=== PATIENT | male | born 1950 | race Caucasian/White ===

== ENCOUNTER 2016-05-28 02:34 | Inpatient (IN) | payer MEDICARE, MEDICAID ==
[~2016-05-28] VITALS: Ht 170.2 cm; Wt 58.8 kg
[2016-05-28] VITALS (7 sets, daily range): BP systolic 89–129; BP diastolic 54–79
[2016-05-28] MEDS ORDERED: methylPREDNISolone SOD SUCC 125 MG/2 ML VL ONE (02:37)
[2016-05-28] MEDS ORDERED: methylPREDNISolone SOD SUCC 125 MG/2 ML VL IV ONE (02:45)
[2016-05-28 02:56] LABS: Basophils # (auto) 0.1 uL; Basophils % (auto) 1.1 % (0.0-2.0); Eosinophils # (auto) 0.4 uL; Hematocrit 54.2 % (41.0-53.0); Hemoglobin 17.3 g/dL (13.5-17.5); Lymphocytes # (auto) 2.3 uL; Lymphocytes % (auto) 31.1 % (10.0-50.0); Mean Corpuscular Hemoglobin 30.4 pg (28.0-32.0); Mean Corpuscular Hgb Conc. 31.9 g/dL (32.0-36.0); Mean Corpuscular Volume 95.3 fL (80.0-100.0); Monocytes # (auto) 0.7 uL; Monocytes % (auto) 9.6 % (0.0-12.0); Neutrophils % (auto) 53.2 % (37.0-80.0); Platelet Count (auto) 313 10^3/uL (140-450); Red Cell Distribution Width 14.5 % (11.6-16.0); White Blood Cell 7.5 10^3/uL (4.4-10.8)
[2016-05-28] MEDS ORDERED: ALBUTEROL SULF 2.5 MG/0.5ML(0.5%) NEB SOLN NEB ONE (03:00)
[2016-05-28] MEDS ORDERED: IPRATROPIUM BROM 0.5 MG/2.5ML INH SOL NEB ONE (03:00)
[2016-05-28 03:37] LABS: Albumin 3.8 g/dL (3.4-5.0); BUN/Creatinine Ratio 19.3; Calcium 9.4 mg/dL (8.5-10.1); Potassium 4.4 mmol/L (3.5-5.1)
[2016-05-28 03:40] LABS: Bilirubin, Total 0.5 mg/dL (0.2-1.0); Total Protein 7.4 g/dL (6.4-8.2)
[2016-05-28 03:58] LABS: B-Type Natriuretic Peptide 11.86 pg/mL (0-100)
[2016-05-28 04:18] LABS: Temperature: 21.9 C (20.0-25.0)
[2016-05-28] MEDS ORDERED: ONDANSETRON HCL 4 MG/2 ML VIAL IV PRN (05:45)
[2016-05-28] MEDS ORDERED: LACTULOSE 20Gm/30ML SOLN PO PRN (05:45)
[2016-05-28] MEDS ORDERED: MORPHINE SULF INJ 2 MG/ML SYRINGE 1ML IV PRN (05:45)
[2016-05-28] MEDS ORDERED: NITROGLYCERIN 0.4 MG SL TAB SL PRN (05:45)
[2016-05-28] MEDS: SODIUM CHLORIDE 0.9% 1,000 ML IV SCH ×2 (06:02→07:42)
[2016-05-28] MEDS: ALPRAZolam 0.5 MG TAB PO SCH ×3 (06:02→22:31)
[2016-05-28] MEDS: ALBUTEROL SULF 2.5 MG/0.5ML(0.5%) NEB SOLN NEB SCH ×5 (06:41→22:24)
[2016-05-28] MEDS: IPRATROPIUM BROM 0.5 MG/2.5ML INH SOL NEB SCH ×5 (06:41→22:24)
[2016-05-28] MEDS ORDERED: cefTRIAXone 1GM/50ML D5W 50 ML IV SCH (09:00)
[2016-05-28] MEDS ORDERED: methylPREDNISolone SOD SUCC 125 MG/2 ML VL IV SCH (10:00)
[2016-05-28] MEDS ORDERED: ENOXAPARIN SOD 30 MG/0.3 ML SYRINGE SC SCH (10:00)
[2016-05-28] MEDS: ENOXAPARIN SOD 40 MG/0.4 ML SYRINGE SC SCH (10:47)
[2016-05-28] MEDS: PANTOPRAZOLE SODIUM 40 MG/10 ML VIAL IV SCH (10:47)
[2016-05-28] MEDS ORDERED: LEVOFLOXACIN 500MG 100 ML IV ONE (13:00)
[2016-05-28] MEDS ORDERED: INFLUENZA QUAD 2016-2017 0.5 ML SYRG IM ONE (13:45)
[2016-05-28] MEDS ORDERED: PNEUMOCOCCAL VACC POLYS 25 MCG/0.5 ML VIAL IM ONE (13:45)
[2016-05-28] MEDS ORDERED: methylPREDNISolone SOD SUCC 40 MG/ML VL IV SCH (18:00)
[2016-05-28] MEDS: methylPREDNISolone SOD SUCC 125 MG/2 ML VL IV SCH (22:30)
[2016-05-28] MEDS: DOXAZOSIN MESYL 2 MG TAB PO SCH (22:30)
[2016-05-29] MEDS: ALBUTEROL SULF 2.5 MG/0.5ML(0.5%) NEB SOLN NEB SCH ×6 (02:30→22:04)
[2016-05-29] MEDS: IPRATROPIUM BROM 0.5 MG/2.5ML INH SOL NEB SCH ×6 (02:30→22:05)
[2016-05-29 05:00] VITALS: BP 94/47
[2016-05-29 05:10] LABS: Basophils # (auto) 0 uL; Basophils % (auto) 0.1 % (0.0-2.0); Eosinophils # (auto) 0 uL; Eosinophils % (auto) 0.1 % (0.0-7.0); Hematocrit 41.7 % (41.0-53.0); Hemoglobin 13.9 g/dL (13.5-17.5); Lymphocytes # (auto) 0.5 uL; Lymphocytes % (auto) 8.1 % (10.0-50.0); Mean Corpuscular Hemoglobin 31.9 pg (28.0-32.0); Mean Corpuscular Hgb Conc. 33.3 g/dL (32.0-36.0); Mean Corpuscular Volume 95.8 fL (80.0-100.0); Mean Platelet Volume 7.7 fL (7.4-10.4); Monocytes # (auto) 0.3 uL; Monocytes % (auto) 4.5 % (0.0-12.0); Neutrophils # (auto) 5.7 uL; Neutrophils % (auto) 87.2 % (37.0-80.0); Platelet Count (auto) 247 10^3/uL (140-450); Red Cell Distribution Width 13.3 % (11.6-16.0); White Blood Cell 6.5 10^3/uL (4.4-10.8)
[2016-05-29 05:28] LABS: Albumin 2.9 g/dL (3.4-5.0); Calcium 8.6 mg/dL (8.5-10.1); Potassium 4.7 mmol/L (3.5-5.1)
[2016-05-29 05:30] LABS: BUN/Creatinine Ratio 27.8
[2016-05-29 05:34] LABS: Bilirubin, Total 0.2 mg/dL (0.2-1.0); Total Protein 5.5 g/dL (6.4-8.2)
[2016-05-29] MEDS: ALPRAZolam 0.5 MG TAB PO SCH ×3 (05:46→21:56)
[2016-05-29] MEDS: SODIUM CHLORIDE 0.9% 1,000 ML IV SCH ×2 (05:47→21:49)
[2016-05-29 09:06] VITALS: BP 93/57
[2016-05-29] MEDS: ENOXAPARIN SOD 40 MG/0.4 ML SYRINGE SC SCH (10:29)
[2016-05-29] MEDS: methylPREDNISolone SOD SUCC 125 MG/2 ML VL IV SCH ×2 (10:29→21:54)
[2016-05-29] MEDS: LEVOFLOXACIN 500MG 100 ML IV SCH (10:30)
[2016-05-29] MEDS: PANTOPRAZOLE SODIUM 40 MG/10 ML VIAL IV SCH (10:30)
[2016-05-29 13:53] VITALS: BP 99/51
[2016-05-29] MEDS ORDERED: FLUT250M2 IN (15:28)
[2016-05-29] MEDS ORDERED: FENO1TAB PO (15:28)
[2016-05-29] MEDS ORDERED: DOXA1TAB42 PO (15:28)
[2016-05-29] MEDS ORDERED: BECL80AE9 IN (15:28)
[2016-05-29] MEDS ORDERED: TRAM50TA2 PO (15:28)
[2016-05-29] MEDS ORDERED: ALPR-229 PO (15:28)
[2016-05-29] MEDS ORDERED: FINA5TAB4 PO (15:28)
[2016-05-29 17:11] VITALS: BP 99/42
[2016-05-29] MEDS: DOXAZOSIN MESYL 2 MG TAB PO SCH (21:55)
[2016-05-29 22:00] VITALS: BP 135/56
[2016-05-30] MEDS: ALBUTEROL SULF 2.5 MG/0.5ML(0.5%) NEB SOLN NEB SCH ×5 (02:19→22:05)
[2016-05-30] MEDS: IPRATROPIUM BROM 0.5 MG/2.5ML INH SOL NEB SCH ×6 (02:19→22:05)
[2016-05-30 05:00] VITALS: BP 85/59
[2016-05-30] MEDS: ALPRAZolam 0.5 MG TAB PO SCH ×3 (06:05→22:20)
[2016-05-30] MEDS: SODIUM CHLORIDE 0.9% 1,000 ML IV SCH ×2 (07:35→21:38)
[2016-05-30] MEDS: methylPREDNISolone SOD SUCC 125 MG/2 ML VL IV SCH ×2 (09:03→22:20)
[2016-05-30] MEDS: PANTOPRAZOLE SODIUM 40 MG/10 ML VIAL IV SCH (09:03)
[2016-05-30] MEDS: ENOXAPARIN SOD 40 MG/0.4 ML SYRINGE SC SCH (09:04)
[2016-05-30] MEDS: LEVOFLOXACIN 500MG 100 ML IV SCH (09:04)
[2016-05-30 09:12] VITALS: BP 91/47
[2016-05-30] MEDS ORDERED: guaiFENesin-COD 10 ML UD GT PRN (11:45)
[2016-05-30 13:00] VITALS: BP 100/50
[2016-05-30] MEDS: traMADol HCL 50 MG TAB PO PRN (15:31)
[2016-05-30] MEDS: guaiFENesin-COD 10 ML UD GT PRN ×2 (15:31→22:21)
[2016-05-30 16:43] VITALS: BP 95/56
[2016-05-30 22:00] VITALS: BP 100/57
[2016-05-30] MEDS: DOXAZOSIN MESYL 2 MG TAB PO SCH (22:20)
[2016-05-31] MEDS: ALBUTEROL SULF 2.5 MG/0.5ML(0.5%) NEB SOLN NEB SCH ×6 (02:15→22:19)
[2016-05-31] MEDS: IPRATROPIUM BROM 0.5 MG/2.5ML INH SOL NEB SCH ×6 (02:15→22:19)
[2016-05-31 05:00] VITALS: BP 82/51
[2016-05-31 06:05] LABS: Basophils # (auto) 0 uL; Basophils % (auto) 0.2 % (0.0-2.0); Eosinophils # (auto) 0 uL; Hematocrit 38.4 % (41.0-53.0); Hemoglobin 12.5 g/dL (13.5-17.5); Lymphocytes # (auto) 0.3 uL; Lymphocytes % (auto) 6.1 % (10.0-50.0); Mean Corpuscular Hgb Conc. 32.6 g/dL (32.0-36.0); Mean Platelet Volume 8.2 fL (7.4-10.4); Monocytes # (auto) 0.2 uL; Monocytes % (auto) 4.5 % (0.0-12.0); Neutrophils # (auto) 4.6 uL; Neutrophils % (auto) 89.2 % (37.0-80.0); Platelet Count (auto) 235 10^3/uL (140-450); Red Cell Distribution Width 14.2 % (11.6-16.0); White Blood Cell 5.1 10^3/uL (4.4-10.8)
[2016-05-31 06:11] LABS: BUN/Creatinine Ratio 27.8; Calcium 8.5 mg/dL (8.5-10.1); Magnesium 2.4 mg/dL (1.6-2.6); Potassium 4.6 mmol/L (3.5-5.1)
[2016-05-31 06:14] LABS: INR 1.11 (0.9-1.15); Prothrombin Time 11.4 sec (9.37-12.3)
[2016-05-31] MEDS: ALPRAZolam 0.5 MG TAB PO SCH ×3 (06:19→23:17)
[2016-05-31] MEDS: SODIUM CHLORIDE 0.9% 1,000 ML IV SCH ×2 (08:32→21:02)
[2016-05-31 08:51] VITALS: BP 97/51
[2016-05-31] MEDS: PANTOPRAZOLE SODIUM 40 MG/10 ML VIAL IV SCH (09:47)
[2016-05-31] MEDS: LEVOFLOXACIN 500MG 100 ML IV SCH (09:47)
[2016-05-31] MEDS: guaiFENesin-COD 10 ML UD GT PRN ×2 (09:48→23:29)
[2016-05-31] MEDS: methylPREDNISolone SOD SUCC 125 MG/2 ML VL IV SCH (09:48)
[2016-05-31] MEDS: ENOXAPARIN SOD 40 MG/0.4 ML SYRINGE SC SCH (10:22)
[2016-05-31 13:00] VITALS: BP 91/45
[2016-05-31] MEDS: traMADol HCL 50 MG TAB PO PRN (14:31)
[2016-05-31] MEDS ORDERED: LEVO500T3 PO (15:48)
[2016-05-31] MEDS ORDERED: PANT40TA2 PO (15:48)
[2016-05-31 17:02] VITALS: BP 100/67
[2016-05-31 21:33] VITALS: BP 105/57
[2016-05-31 21:50] VITALS: BP 105/57
[2016-05-31] MEDS ORDERED: DOXAZOSIN MESYL 2 MG TAB PO SCH (22:00)
[2016-05-31] MEDS: methylPREDNISolone SOD SUCC 40 MG/ML VL IV SCH (23:18)
[2016-06-01] MEDS: IPRATROPIUM BROM 0.5 MG/2.5ML INH SOL NEB SCH ×4 (01:54→14:53)
[2016-06-01] MEDS: ALBUTEROL SULF 2.5 MG/0.5ML(0.5%) NEB SOLN NEB SCH ×4 (01:54→14:54)
[2016-06-01 05:41] VITALS: BP 92/49
[2016-06-01] MEDS: ALPRAZolam 0.5 MG TAB PO SCH ×2 (07:03→14:45)
[2016-06-01] MEDS: SODIUM CHLORIDE 0.9% 1,000 ML IV SCH (07:03)
[2016-06-01] MEDS: guaiFENesin-COD 10 ML UD GT PRN ×2 (07:09→14:45)
[2016-06-01 08:30] VITALS: BP 97/50
[2016-06-01] MEDS ORDERED: LEVOFLOXACIN 500 MG TAB PO SCH (10:00)
[2016-06-01] MEDS: PANTOPRAZOLE SODIUM 40 MG/10 ML VIAL IV SCH (10:31)
[2016-06-01] MEDS: ENOXAPARIN SOD 40 MG/0.4 ML SYRINGE SC SCH (10:31)
[2016-06-01] MEDS: methylPREDNISolone SOD SUCC 40 MG/ML VL IV SCH (10:31)
[2016-06-01] MEDS ORDERED: Nutren Pulmonary 250ml Bottle PO SCH (12:00)
[2016-06-01 13:09] VITALS: BP 91/51
[2016-06-01 14:39] VITALS: BP 105/57
[2016-06-01 16:25] VITALS: BP 108/62
== END 2016-06-01 16:35 | disposition home or self-care (01) | DRG 189 ==
LOC: ER 02:35 → TELE-WESTW 02:36 → WEST WING 06-01 11:32
PROVIDERS: ADMIT Family Medicine; ATTEND Internal Medicine
PROC: 5A09357 Assistance with Respiratory Ventilation, Less than 24 Consecutive Hours, Continuous Positive Airway Pressure (ICD-10-PCS; principal; 2016-05-28)
DX: J96.21 Acute and chronic respiratory failure with hypoxia (principal); J44.0 Chronic obstructive pulmonary disease with (acute) lower respiratory infection; J44.1 Chronic obstructive pulmonary disease with (acute) exacerbation; J20.9 Acute bronchitis, unspecified; F17.210 Nicotine dependence, cigarettes, uncomplicated; J45.909 Unspecified asthma, uncomplicated; M19.90 Unspecified osteoarthritis, unspecified site; G89.29 Other chronic pain; N40.0 Benign prostatic hyperplasia without lower urinary tract symptoms; M54.5 Low back pain; F41.1 Generalized anxiety disorder
CPT/HCPCS: 36415; 36600; 71010; 80048; 80053; 80061; 82805; 83735; 83880; 84484; 85025; 85049; 85610; 87040; 87070; 87081; 87205; 87400; 93005; 94640; 94660; 96374; C9113; J0696; J1956